=== PATIENT | male | born 1965 | race Caucasian/White ===

== ENCOUNTER 2016-05-17 12:04 | Inpatient (IN) | payer MEDICARE ==
[~2016-05-17] VITALS: Ht 175.3 cm; Wt 86.0 kg
[2016-05-17 14:55] LABS: RED BLOOD COUNT 4.2 M/UL (4.20-5.50); WHITE BLOOD COUNT 23.7 K/UL (4.5-11.0)
[2016-05-17] MEDS ORDERED: ASPIR 8181 MG PO (20:56)
[2016-05-17] MEDS ORDERED: TRICOR 145 MG145 MG PO (20:56)
[2016-05-17] MEDS ORDERED: DEXILANT60 MG PO (20:57)
[2016-05-17] MEDS ORDERED: LASIX80 MG PO (20:57)
[2016-05-17] MEDS ORDERED: ZYRTEC10 M3 PO (20:57)
[2016-05-17] MEDS ORDERED: LORTAB 7.5-3251 EACH PO (20:58)
[2016-05-17] MEDS ORDERED: DILTIAZEM ER360 M1 PO (20:59)
[2016-05-17] MEDS ORDERED: TOPROL XL 25 MG25 MG PO (21:00)
[2016-05-17] MEDS ORDERED: BUSPIRONE HCL30 MG PO (21:00)
[2016-05-18 02:18] LABS: HEMOGLOBIN 13.8 gm/dl (14.0-17.5); RED BLOOD COUNT 3.88 M/UL (4.20-5.50)
[2016-05-18 11:12] LABS: ACINETOBACTER BAUMANNII Not Detected (Negative); CANDIDA ALBICANS Not Detected (Negative); CANDIDA KRUSEI Not Detected (Negative); CANDIDA TROPICALIS Not Detected (Negative); ENTEROCOCCUS Not Detected (Negative); ESCHERICHIA COLI Not Detected (Negative); HAEMOPHILUS INFLUENZAE Not Detected (Negative); KLEBSIELLA OXYTOCA Not Detected (Negative); KLEBSIELLA PNEUMONIAE Not Detected (Negative); KPC-CARBAPENEM-RESISTANCE GENE Not Detected (Negative); PROTEUS Not Detected (Negative); PSEUDOMONAS AERUGINOSA Not Detected (Negative); SERRATIA MARCESANS Not Detected (Negative); STAPHYLOCOCCUS Not Detected (Negative); STAPHYLOCOCCUS AUREUS Not Detected (Negative); STREP AGALACTIAE (GROUP B) Not Detected (Negative); STREP PYOGENES (GROUP A) Not Detected (Negative); STREPTOCOCCUS Not Detected (Negative); mecA (METHICILLIN RESIST GENE Not Detected (Negative); vanA/B (VANCOMYCIN RESIST GENE Not Detected (Negative)
[2016-05-19 05:42] LABS: HEMOGLOBIN 11.2 gm/dl (14.0-17.5); RED BLOOD COUNT 3.16 M/UL (4.20-5.50); WHITE BLOOD COUNT 11.1 K/UL (4.5-11.0)
[2016-05-20 04:29] LABS: HEMOGLOBIN 10.1 gm/dl (14.0-17.5); RED BLOOD COUNT 2.87 M/UL (4.20-5.50); WHITE BLOOD COUNT 13.5 K/UL (4.5-11.0)
[2016-05-21 04:01] LABS: HEMOGLOBIN 9.5 gm/dl (14.0-17.5); RED BLOOD COUNT 2.69 M/UL (4.20-5.50); WHITE BLOOD COUNT 16.6 K/UL (4.5-11.0)
== END 2016-05-21 16:20 | disposition short-term general hospital (02) | DRG 871 ==
LOC: EDBD 12:04 → ER1 12:04 → ZEROF 16:15 → CCU 16:15 → PROG CARE 19:47 → CCU 05-18 02:35
PROVIDERS: Emergency Medicine; Internal Medicine Pulmonary Disease; ADMIT Internal Medicine
PROC: 5A1945Z Respiratory Ventilation, 24-96 Consecutive Hours (ICD-10-PCS; principal; 2016-05-18)
PROC: 0BH17EZ Insertion of Endotracheal Airway into Trachea, Via Natural or Artificial Opening (ICD-10-PCS; principal; 2016-05-18)
PROC: 0BH18EZ Insertion of Endotracheal Airway into Trachea, Via Natural or Artificial Opening Endoscopic (ICD-10-PCS; 2016-05-18)
PROC: B543ZZA Ultrasonography of Right Jugular Veins, Guidance (ICD-10-PCS; 2016-05-18)
PROC: 05HM33Z Insertion of Infusion Device into Right Internal Jugular Vein, Percutaneous Approach (ICD-10-PCS; 2016-05-18)
PROC: 03HB33Z Insertion of Infusion Device into Right Radial Artery, Percutaneous Approach (ICD-10-PCS; 2016-05-20)
DX: A41.9 Sepsis, unspecified organism (principal); K85.20 Alcohol induced acute pancreatitis without necrosis or infection; R65.21 Severe sepsis with septic shock; G92 Toxic encephalopathy; F10.231 Alcohol dependence with withdrawal delirium; J80 Acute respiratory distress syndrome; E87.2 Acidosis; E87.1 Hypo-osmolality and hyponatremia; N17.9 Acute kidney failure, unspecified; T79.A3XA Traumatic compartment syndrome of abdomen, initial encounter; B17.9 Acute viral hepatitis, unspecified; R18.8 Other ascites; F10.288 Alcohol dependence with other alcohol-induced disorder; I95.9 Hypotension, unspecified; R50.9 Fever, unspecified; R73.03 Prediabetes; D69.59 Other secondary thrombocytopenia; K70.0 Alcoholic fatty liver; F17.210 Nicotine dependence, cigarettes, uncomplicated; I25.10 Atherosclerotic heart disease of native coronary artery without angina pectoris; Z95.5 Presence of coronary angioplasty implant and graft; D75.89 Other specified diseases of blood and blood-forming organs; K59.03 Drug induced constipation; T40.605A Adverse effect of unspecified narcotics, initial encounter; Y92.230 Patient room in hospital as the place of occurrence of the external cause; E87.70 Fluid overload, unspecified; Z88.5 Allergy status to narcotic agent; Z79.82 Long term (current) use of aspirin; Z79.891 Long term (current) use of opiate analgesic; Z79.899 Other long term (current) drug therapy
CPT/HCPCS: ECHO; 31500; 36415; 36600; 71010; 74000; 76705; 80048; 80053; 80307; 81001; 82009; 82140; 82150; 82248; 82310; 82533; 82550; 82553; 82800; 82803; 82962; 83010; 83036; 83605; 83690; 83735; 83874; 84100; 84484; 85007; 85025; 85027; 85610; 85730; 87040; 87070; 87077; 87150; 87186; 87205; 93306; 94002; 94003; 94640; 94660; 94664; 95816; 96361; 96374; 96375; 99285; A4628; C9113; G0480; J0330; J1200; J1956; J2060; J2250; J2370; J2543; J2765; J3360; J3411; J3475; J7030; J7040; J7050; J7070